=== PATIENT | male | born 1975 | race Caucasian/White ===

== ENCOUNTER 2025-01-02 18:25 | Inpatient (IN) | payer MEDICAID, OTHER ==
[~2025-01-02] VITALS: Ht 182.9 cm; Wt 108.5 kg
[~2025-01-02 18:25] MED LIST: [UNRECOGNIZED DRUG - CODE]
--- NOTE | 2025-01-02 18:45 | ED.PDOC ---
SOB-HPI HPI Comments This is a 49 year old male presenting to the ED with chief complaint of SOB and LLE pain/swelling. Patient reports that he has been experiencing SOB and dyspnea on mild exertion with associated left posterior leg burning/aching, cough with yellow sputum and dizziness. Patient reports his left leg has been swollen for a while." Patient denies any chest pain, syncope, headache, numbness, weakness, or fall injury. Chief Complaint: Lower Extremity Time Seen by MD: 18:43 Primary Care Provider: DENIES Reviewed notes: Nurses Notes, Medications, Allergies Information Source: Patient Mode of Arrival: Ambulatory Severity: Moderate Timing: Days Duration: Since onset Context: At Rest PE Risk Factors: None History of: None Prehospital treatment: None Modifying Factors: Nothing Associated Signs and Symptoms: Cough, Leg Swelling If cough with SOB: Productive, Yellow Past Medical History PAST MEDICAL HISTORY: Denies Surgical History (Other): Rt clavicle surgery, right wrist surgery Family History Family History: Reviewed,noncontributory to illness, Unknown Social History Smoker: Cigarettes Alcohol: Denies ETOH Use Drugs: Denies Drug Use Lives In: Home Constitutional: denies: chills, diaphoresis, fatigue, fever, malaise, sweats, weakness, others EENTM: denies: blurred vision, double vision, ear bleeding, ear discharge, ear drainage, ear pain, ear ringing, eye pain, eye redness, hearing loss, mouth pain, mouth swelling, nasal discharge, nose bleeding, nose congestion, nose pain, photophobia, tearing, throat pain, throat swelling, voice changes, others Respiratory: reports: cough, SOB at rest, shortness of breath; denies: hemoptysis, orthopnea, SOB with excertion, stridor, wheezing, others Cardiovascular: reports: edema; denies: chest pain, dizzy spells, diaphoresis, Dyspnea on exertion, irregular heart beat, left arm pain, lightheadedness, palpitations, PND, syncope, others Gastrointestinal: denies: abdomen distended, abdominal pain, blood streaked bowels, constipated, diarrhea, dysphagia, difficulty swallowing, hematemesis, melena, nausea, poor appetite, poor fluid intake, rectal bleeding, rectal pain, vomiting, others Genitourinary: denies: burning, dysuria, flank pain, frequency, hematuria, incontinence, penile discharge, penile sore, pain, testicle pain, testicle swelling, urgency, others Neurological: reports: dizziness; denies: fainting, headache, left sided numbness, left sided weakness, numbness, paresthesia, pre-existing deficit, right sided numbness, right sided weakness, seizure, speech problems, tingling, tremors, weakness, others Musculoskeletal: reports: others (Lt leg pain); denies: back pain, gout, joint pain, joint swelling, muscle pain, muscle stiffness, neck pain Integumetry: denies: bruises, change in color, change in hair/nails, dryness, laceration, lesions, lumps, rash, wounds, others Allergic/Immunocompromised: denies: Difficulty Healing, Frequent Infections, Hives, Itching, others Hematologic/Lymphatic: denies: anemia, blood clots, easy bleeding, easy bruisin g, swollen glands, others Endocrine: denies: excessive hunger, excessive sweating, excessive thirst, excessive urination, flushing, intolerance to cold, intolerance to heat, unexplained weight gain, unexplained weight loss, others Psychiatric: denies: anxiety, bipolar disorder, depression, hopeless, panic disorder, schizophrenia, sleepless, suicidal, others All Other Systems: Reviewed and Negative Physical Exam General Appearance: No Apparent Distress, Obese HEENT: Other (Pupils and face symmetric. Moist mucous membranes.) Neck: Full Range of Motion, Normal Inspection Respiratory: Lungs Clear, No Respiratory Distress, Normal Breath Sounds Cardiovascular: No Edema, No JVD, Regular Rate/Rhythm Breast Exam: Deferred Gastrointestinal: Non Tender, Soft Genitalia: Deferred Pelvic: Deferred Rectal: Deferred Extremities: Calf tenderness (Left), Leg edema (Left), Normal range of motion, Pedal edema (Left) Musculoskeletal : Apperance: Normal Neurologic: Alert (Oriented x4), Normal Affect, Normal Mood, Other (Ambulatory) Cerebellar Function: NOT DONE Reflexes: NOT DONE Skin: Dry, Normal Color, Warm Lymphatic: NOT DONE EKG EKG : Comments Sinus rhythm, rate 99, normal [place] and QRS intervals, QTC 513, normal axis, nonspecific T change. Was a procedure done? Was a procedure done?: No Differential Dx Differential Diagnosis: Asthma, Bronchitis, CHF, COPD, Pneumonia, Pulmonary Embolism, Respiratory Distress, URI Comments DVT X-Ray, Labs, Meds, VS Vital Signs Date Time Temp Pulse Resp B/P (MAP) Pulse Ox O2 Delivery O2 Flow Rate FiO2 01/02/25 21:03 98.7 81 12 143/71 (95) 96 98.7 01/02/25 19:02 20 95 Room Air* 0 21 01/02/25 18:35 99 01/02/25 18:27 99.2 102 18 144/86 93 99.2 01/02/25 18:27 102 20 93 Room Air Lab Test 01/02/25 19:50 01/02/25 18:55 Range/Units Troponin I High Sensitivity 52 53 </=54 ng/L White Blood Count 10.0 4.4-10.8 10^3/uL Red Blood Count 5.10 4.5-5.90 10^6/uL Hemoglobin 15.3 13.5-17.5 g/dL Hematocrit 44.6 41.0-53.0 % Mean Corpuscular Volume 87.4 80.0-100.0 fL Mean Corpuscular Hemoglobin 29.9 28.0-32.0 pg Mean Corpuscular Hemoglobin Concent 34.2 32.0-36.0 g/dL Red Cell Distribution Width 14.4 H 11.8-14.3 % Platelet Count 278 140-450 10^3/uL Mean Platelet Volume 6.9 6.9-10.8 fL Neutrophils (%) (Auto) 69.4 37.0-80.0 % Lymphocytes (%) (Auto) 19.5 10.0-50.0 % Monocytes (%) (Auto) 6.8 0.0-12.0 % Eosinophils (%) (Auto) 3.7 0.0-7.0 % Basophils (%) (Auto) 0.6 0.0-2.0 % Neutrophils # (Auto) 6.9 1.6-8.6 10 ^3/uL Lymphocytes # (Auto) 1.9 0.4-5.4 10 ^3/uL Monocytes # (Auto) 0.7 0-1.3 10 ^3/uL Eosinophils # (Auto) 0.4 0-0.8 10 ^3/uL Basophils # (Auto) 0.1 0-0.2 10 ^3/uL Nucleated Red Blood Cells 0.0 % Prothrombin Time 10.8 9.3-11.8 sec Prothrombin Time INR 1.02 0.9-1.15 Activated Partial Thromboplast Time 30.5 24.5-34.5 SEC D-Dimer, Quantitative 3.54 H 0.0-0.49 mg/L FEU Sodium Level 141 136-145 mmol/L Potassium Level 3.9 3.5-5.1 mmol/L Chloride Level 106 98-107 mmol/L Carbon Dioxide Level 26 20-31 mmol/L Anion Gap 9 5-15 Blood Urea Nitrogen 11 9-23 mg/dL Creatinine 1.20 0.700-1.30 mg/dL Glomerular Filtration Rate Calc 75 >90 mL/min BUN/Creatinine Ratio 9.2 L 10.0-20.0 Serum Glucose 87 74-106 mg/dL Calcium Level 9.3 8.7-10.4 mg/dL Total Bilirubin 0.3 0.2-1.0 mg/dL Aspartate Amino Transferase (AST) 84 H 13-40 U/L Alanine Aminotransferase (ALT) 76 H 7-40 U/L Alkaline Phosphatase 162 H 46-116 U/L B-Type Natriuretic Peptide 181.46 0-100 pg/mL Total Protein 7.8 5.7-8.2 g/dL Albumin 4.6 3.2-4.8 g/dL Current Medications Medications (Trade) Dose Ordered Sig/Letitia Route Start Time Stop Time Status Last Admin Albuterol (Ventolin Medneb) 5 mg ONCE ONCE NEB 01/02/25 18:45 01/02/25 18:46 DC 01/02/25 18:59 Ipratropium Rice (Atrovent Medneb) 0.5 mg ONCE ONCE NEB 01/02/25 18:45 01/02/25 18:46 DC 01/02/25 19:00 Chest XR: 1. No acute cardiopulmonary disease. PATIENT: BENNIE SALINAS ACCT: [id number] UNIT: [id number] : 1975 LOC: ER ROOM / BED: / AGE / SEX: 49 / M ADM STATUS: REG ER SERVICE 1841 ORDERING PHYSICIAN: WILLIAM TAN MD PROCEDURE(s): LLDVT - LT Lower DVT REASON: LLE edema/pain r/o DVT ORDER NUMBER(s): [id number], ACCESSION NUMBER(s): [id number] Left lower extremity venous duplex Clinical History: LLE edema/pain r/o DVT Comparison: None Technique: Duplex doppler evaluation of the deep venous system of the left lower extremity from the common femoral vein to the popliteal vein including color doppler and spectral/pulsed waveform analysis was performed. Findings: Occlusive thrombus throughout the left superficial femoral vein, popiteal vein, as well as the trifurcations and posterior tibial veins. Common femoral and saphenous veins are patent and compressible. Impression: Positive for DVT throughout the left lower extremity as described. Findings reported to the ordering MD by the senior javascript developer at the time of the study. ENT: BENNIE SALINAS ACCT: [id number] UNIT: [id number] : 1975 LOC: ER ROOM / BED: / AGE / SEX: 49 / M ADM STATUS: REG ER SERVICE 28 ORDERING PHYSICIAN: WILLIAM TAN MD PROCEDURE(s): CTACH - CT ANGIO CHEST CONTRAST REASON: LLE DVT r/o PE ORDER NUMBER(s): [id number], ACCESSION NUMBER(s): [id number] CTA Chest with intravenous contrast INDICATION: LLE DVT r/o PE COMPARISON: None TECHNIQUE: Multidetector spiral CTA of the chest was performed of the chest with intravenous contrast. PULMONARY ANGIOGRAPHY PROTOCOL was utilized using a bolus- tracking technique centered on the main pulmonary artery. Axial, coronal and sagittal multiplanar and MIP reformats were performed. Radiation dose : 1. Chest: CTDI volume is 28.6 mGy. Dose-length product is 1094.61 mGy*cm The dose indicators for CT are the volume computed tomography (CT) dose index (CTDIvol) and the dose length product (DLP), and are measured in units of mGy and mGy-cm, respectively. These indicators are not patient dose, but values generated from the CT scanner acquisition factors. The report includes radiation exposure data for exposures received during this examination. Findings: Pulmonary artery: Extensive bilateral PE with thrombus beginning at the distal aspects of both main pulmonary arteries extending into the lobar branches diffusely. Main pulmonary artery is mildly enlarged measuring 3.6 cm. No obvious RV strain. Lower neck: Normal thyroid. Lungs: No focal consolidation, pleural effusion or pneumothorax. Heart/Vascular Structures: Normal heart size. No pericardial effusion. Lymph Nodes: No adenopathy Pleura: No pleural effusion or significant pneumothorax. Musculoskeletal: No acute osseous abnormality. Soft tissues: Normal. Upper abdomen: Limited portions of the upper abdomen are unremarkable. IMPRESSION: Extensive bilateral PE. No definite right heart strain. Findings discussed with ER physician Dr. Rainey at at 9:53 PM on 01/02/2025. X-Ray, Labs, Meds, VS Comment 49-year-old male with no significant past medical history except for current tobacco use complaining of shortness a breath, left leg swelling and pain, and dizziness Vitals remarkable for heart rate 102, BP 144/86, oxygen saturation 93% on room air Exam remarkable for left lower extremity edema and calf tenderness Rhythm strip independently interpreted by me: Sinus rhythm, rate 99, no ectopy. Chest x-ray unremarkable CT angio chest IMPRESSION: Extensive bilateral PE. No definite right heart strain. Left lower extremity ultrasound positive for DVT CBC and CMP unremarkable, troponin negative, BNP 181.46, D-dimer 3.54 Patient treated with the following in the ED: Albuterol 5 mg/Atrovent 0.5 mg nebulized, heparin IV per protocol On re-evaluation, oxygen saturation is 95% on room air, other vitals were stable, and patient is not in respiratory distress. Plan is to admit the patient for anticoagulation and IR consultation for thrombectomy. Images Reviewed?: Images reviewed and evaluated by me Time of 1ST Reevaluation: 19:42 Reevaluation 1ST: Improved Patient Education/Counseling: Diagnosis, Treatment Family Education/Counseling: No Family Present SEPSIS Sepsis Screen Date sepsis recognized/suspect: Jan 02, 2025 Time Sepsis recognized/suspect: 1826 Recent Procedure: No On Antibiotic Therapy: No Respiratory Rate >20: No Heart Rate >90: Yes Temp<36 C (96.8 F) or >38.3 C: No SBP <90 or MAP <65 mmHG: No New Acute Mental Status Change: No Is the patient on CPAP, BIPAP,: No SEPSIS EXCLUSION NOTE: Sepsis Exclusion Note: Patient presents with SIRS criteria, but the SIRS response is attributed to [shortness of breath ], not a suspected infection. Sepsis bundle is not initiated at this time, due to this reason. Further management will focus on the treatment of the above condition (s). Physician Orders Chest Portable (01/02/25 18:41) Urinalysis (01/02/25 18:41) Troponin-I Hs (01/02/25 21:41) Lt Lower Dvt (01/02/25 18:41) Ct Angio Chest Contrast (01/02/25 19:29) * Radiologist Consult (01/02/25:) Platelet Monitoring (01/02/25:29) Vte Protocol Initiated (01/02/25:) Heparin Per Standardized Proce (01/02/25:) Discontinue All Im Injections (01/02/25:) Heparin Sodium (Porcine) (01/02/25 19:30) Heparin Drip/D5w 100units/Ml (01/02/25 20:00) Heplock Iv (01/02/25:) Oxygen (01/02/25:) Customer Support Consultant (01/02/25:) Blood Pressure (01/02/25:) Pulse Oximetry (01/02/25:29) Vital Signs Date Time Temp Pulse Resp B/P (MAP) Pulse Ox O2 Delivery O2 Flow Rate FiO2 01/02/25 21:03 98.7 81 12 143/71 (95) 96 98.7 01/02/25 19:02 20 95 Room Air* 0 21 01/02/25 18:35 99 01/02/25 18:27 99.2 102 18 144/86 93 99.2 01/02/25 18:27 102 20 93 Room Air Laboratory Tests Test 01/02/25 18:55 White Blood Count 10.0 10^3/uL (4.4-10.8) Medications Medications Dose Ordered Sig/Letitia Route Start Time Stop Time Status Last Admin Dose Admin Albuterol 5 mg ONCE ONCE NEB 01/02/25 18:45 01/02/25 18:46 DC 01/02/25 18:59 Ipratropium Rice 0.5 mg ONCE ONCE NEB 01/02/25 18:45 01/02/25 18:46 DC 01/02/25 19:00 Departure 1 Departure Time of Disposition: 19:53 Impression: Primary Impression: Deep vein thrombosis (DVT) of left lower extremity Qualified Codes: I82.402 - Acute embolism and thrombosis of unspecified deep veins of left lower extremity Additional Impression: Pulmonary embolus Qualified Codes: I26.99 - Other pulmonary embolism without acute cor pulmonale Disposition: ADMITTED INPATIENT Admit to: [facility] Condition: Guarded Critical Care Note Critical Care Time?: Yes (45 min-critical care time only) Critical care comment: Critical care time including multiple bedside re-evaluations, review of lab and imaging studies, and discussion of the case with the admitting provider. Patient is high risk for hemodynamic and/or respiratory decompensation. Stability Stability form required: No Heart Score Heart Score: Heart Score Response (Comments) Value History N/A 0 EKG N/A 0 Age N/A 0 Risk Factors N/A 0 Troponin N/A 0 Total 0 I personally scribed for WILLIAM TAN MD ([email or web address]) on 01/02/25 at 18:45. Electronically submitted by Kyrie Suazo ([email or web address]). I personally scribed for WILLIAM TAN MD ([email or web address]) on 01/02/25 at 19:27. Electronically submitted by Kyrie Suazo ([email or web address]). WILLIAM TAN MD Jan 02, 2025 18:45
[2025-01-02] MEDS: ALBUTEROL SULF 2.5 MG/0.5ML(0.5%) NEB SOLN NEB ONE (18:59)
[2025-01-02] MEDS: IPRATROPIUM BROM 0.5 MG/2.5ML INH SOL NEB ONE (19:00)
[2025-01-02 19:02] LABS: Hematocrit 44.6 % (41.0-53.0); Hemoglobin 15.3 g/dL (13.5-17.5); Mean Corpuscular Hemoglobin 29.9 pg (28.0-32.0); Mean Corpuscular Volume 87.4 fL (80.0-100.0); Nucleated Red Blood Cells % 0.0 %
[2025-01-02 19:18] LABS: Albumin 4.6 g/dL (3.2-4.8); Anion Gap 9 (5-15); BUN/Creatinine Ratio 9.2 (10.0-20.0); Blood Urea Nitrogen 11 mg/dL (9-23); Calcium 9.3 mg/dL (8.7-10.4); Carbon Dioxide 26 mmol/L (20-31); Chloride 106 mmol/L (98-107); Glucose 87 mg/dL (74-106); Potassium 3.9 mmol/L (3.5-5.1); Sodium 141 mmol/L (136-145); Total Protein 7.8 g/dL (5.7-8.2)
[2025-01-02 19:19] LABS: Bilirubin, Total 0.3 mg/dL (0.2-1.0)
[2025-01-02 19:20] LABS: Alanine Aminotransferase 76 U/L (7-40); Alkaline Phosphatase 162 U/L (46-116)
[2025-01-02 19:24] LABS: INR 1.02 (0.9-1.15); Partial Thromboplastin Time 30.5 SEC (24.5-34.5); Prothrombin Time 10.8 sec (9.3-11.8)
--- NOTE | 2025-01-02 19:25 | DVH ---
CHEST RADIOGRAPH Indication: sob Technique: Single frontal view of the chest was obtained Comparison: None FINDINGS: Lines and Tubes: None Lungs: No focal consolidation. Pleura: No effusion. No pneumothorax. Cardiomediastinal contours: Unremarkable Bones: No acute osseous abnormality. IMPRESSION: 1. No acute cardiopulmonary disease.
--- NOTE | 2025-01-02 19:57 | DVH ---
Left lower extremity venous duplex Clinical History: LLE edema/pain r/o DVT Comparison: None Technique: Duplex doppler evaluation of the deep venous system of the left lower extremity from the common femor al vein to the popliteal vein including color doppler and spectral/pulsed waveform analysis was perfo rmed. Findings: Occlusive thrombus throughout the left superficial femoral vein, popiteal vein, as well as the trifur cations and posterior tibial veins. Common femoral and saphenous veins are patent and compressible. Impression: Positive for DVT throughout the left lower extremity as described. Findings reported to the ordering MD by the manager of revenue at the time of the study.
--- NOTE | 2025-01-02 20:54 | ECG ---
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
[2025-01-02] MEDS: IOHEXOL 350 MG/ML 100ML IJ ONE (21:14)
--- NOTE | 2025-01-02 21:56 | DVH ---
CTA Chest with intravenous contrast INDICATION: LLE DVT r/o PE COMPARISON: None TECHNIQUE: Multidetector spiral CTA of the chest was performed of the chest with intravenous contrast . PULMONARY ANGIOGRAPHY PROTOCOL was utilized using a bolus-tracking technique centered on the main p ulmonary artery. Axial, coronal and sagittal multiplanar and MIP reformats were performed. Radiation dose : 1. Chest: CTDI volume is 28.6 mGy. Dose-length product is 1094.61 mGy*cm The dose indicators for CT are the volume computed tomography (CT) dose index (CTDIvol) and the dose length product (DLP), and are measured in units of mGy and mGy-cm, respectively. These indicators are not patient dose, but values generated from the CT scanner acquisition factors. The report includes radiation exposure data for exposures received during this examination. Findings: Pulmonary artery: Extensive bilateral PE with thrombus beginning at the distal aspects of both main p ulmonary arteries extending into the lobar branches diffusely. Main pulmonary artery is mildly enlarg ed measuring 3.6 cm. No obvious RV strain. Lower neck: Normal thyroid. Lungs: No focal consolidation, pleural effusion or pneumothorax. Heart/Vascular Structures: Normal heart size. No pericardial effusion. Lymph Nodes: No adenopathy Pleura: No pleural effusion or significant pneumothorax. Musculoskeletal: No acute osseous abnormality. Soft tissues: Normal. Upper abdomen: Limited portions of the upper abdomen are unremarkable. IMPRESSION: Extensive bilateral PE. No definite right heart strain. Findings discussed with ER physician Dr. Rainey at at 9:53 PM on 01/02/2025.
[2025-01-02] MEDS ORDERED: MORPHINE SULFATE INJ 2 MG/ml SYRG IV PRN (22:15)
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
[2025-01-02] MEDS: HEPARIN SODIUM (PORCINE) 5000 UNITS/ML 1ML VIAL IV ONE (22:19)
[2025-01-02] MEDS: HEPARIN DRIP/D5W 100UNITS/ML 250 ML IV SCH (22:28)
[2025-01-02] MEDS: SODIUM CHLORIDE 0.9% 1,000 ML IV SCH (22:36)
[2025-01-02] MEDS: PANTOPRAZOLE 40 MG/10 ML VIAL INJ IV ONE (22:36)
[2025-01-02 22:43] LABS: Magnesium 2.1 mg/dL (1.6-2.6)
[2025-01-02 22:44] LABS: HDL Cholesterol 47.0 mg/dL (40-59)
[2025-01-02 22:45] LABS: Cholesterol 157.0 mg/dL (< 200)
[2025-01-02 22:46] LABS: Triglycerides 189.0 mg/dL (< 150)
[2025-01-03 00:54] VITALS: PULSE 83; RESP 18; O2SAT 98
[2025-01-03] MEDS: NICOTINE 21MG/24 HR TOPICAL PATCH TD ONE (01:10)
[2025-01-03 04:32] LABS: Hematocrit 41.3 % (41.0-53.0); Hemoglobin 13.8 g/dL (13.5-17.5); Mean Corpuscular Hemoglobin 29.5 pg (28.0-32.0); Mean Corpuscular Volume 88.2 fL (80.0-100.0); Nucleated Red Blood Cells % 0.1 %
[2025-01-03 04:50] LABS: Albumin 4.0 g/dL (3.2-4.8); Anion Gap 7 (5-15); BUN/Creatinine Ratio 9.1 (10.0-20.0); Bilirubin, Total 0.6 mg/dL (0.2-1.0); Blood Urea Nitrogen 11 mg/dL (9-23); Calcium 8.8 mg/dL (8.7-10.4); Carbon Dioxide 27 mmol/L (20-31); Chloride 107 mmol/L (98-107); Potassium 4.1 mmol/L (3.5-5.1); Sodium 141 mmol/L (136-145); Total Protein 6.9 g/dL (5.7-8.2)
[2025-01-03 04:56] LABS: Alanine Aminotransferase 64 U/L (7-40); Alkaline Phosphatase 134 U/L (46-116); Glucose 113 mg/dL (74-106); INR 1.09 (0.9-1.15); Prothrombin Time 11.5 sec (9.3-11.8)
[2025-01-03 04:57] LABS: Partial Thromboplastin Time 84.1 SEC (24.5-34.5)
[2025-01-03] MEDS: HEPARIN DRIP/D5W 100UNITS/ML 250 ML IV SCH ×3 (05:08→20:14)
--- NOTE | 2025-01-03 09:00 | DVH ---
ULTRASOUND AORTIC CLINICAL INDICATION: Rule out May thurner (iliac vein compression) syndrome TECHNIQUE: Multiple sonographic images of the abdominal aorta were obtained. FINDINGS: The aorta measures 1.9, 1.6 and 1.2 cm in the AP diameter, at the superior, mid and inf erior portions, respectively. The right iliac artery measures 12mm in diameter. The left iliac measu red 12mm in diameter. There is no evidence for atherosclerotic disease. There is no periaortic fluid. IMPRESSION: 1. no evidence for abdominal aortic aneurysm. No evidence for may-Thurner.
[2025-01-03] MEDS: PANTOPRAZOLE 40 MG/10 ML VIAL INJ IV SCH (09:33)
[2025-01-03 10:45] LABS: Urine Protein, UAD Normal (Negative)
[2025-01-03 11:02] LABS: Amphetamine Screen, Urine Pos (NEGATIVE); Barbiturate Scree,Urine Neg (NEGATIVE); Benzodiazephine Screen, Urine Neg (NEGATIVE); Cannabinoid Screen, Urine Neg (NEGATIVE); Cocaine Screen, Urine Neg (NEGATIVE); Opiate Scree,Urine Neg (NEGATIVE); Phencyclidine Screen, Urine Neg (NEGATIVE)
[2025-01-03 12:26] LABS: INR 1.08 (0.9-1.15); Partial Thromboplastin Time 46.6 SEC (24.5-34.5); Prothrombin Time 11.4 sec (9.3-11.8)
--- NOTE | 2025-01-03 13:05 | DVHSR ---
APPROVED REPORT EXAM: Two-dimensional and M-mode echocardiogram with Doppler and color Doppler. Blood Pressure: 126/83 mmHg INDICATION Extensive PE RISK FACTORS Obesity: Height: 6'0", Weight: 248 DIMENSIONS LVDd5.4 (3.8-5.7cm)LA (2D)3.8 (1.9-4.0cm)Aortic Root4.0 (2.0-3.7cm) LVDs3.7 (2.5-4.0cm)LA (MM) (1.9-4.0cm)Aortic Cusp Exc2.1 (1.5-2.0cm) EF (%) 60.0 (55-70%)Rt. Atrium4.1 (1.9-4.0cm)Asc. Aorta cm IVSd1.1 (0.7-1.1cm)RV (D)4.3 (1.8-2.4cm) PWd1.0 (0.7-1.1cm) Mitral Valve MitralMitral Stenosis E wave0.58m/sMV Mean GR.mmHg A wave0.67m/sMV Peak GR.mmHg E/A ratio0.92D MVAcm2 DECEL [id number] 1/2 Tim[place] Aortic Valve Aortic ValveAortic Stenosis V11.11m/Yadi Mean GR.5mmHg V21.52m/Yadi Peak GR.9mmHg LVOT Diameter2.2 (1.8-2.4cm)Doppler AVA2.77cm2 Pulmonic Valve V20.94m/s Tricuspid Valve TR Velocity3.86m/s [id number] Conclusion lvef 55% grade 1 diaistolic dysfunction RV enlarged mild, decreased function PASP > 50 mmhg ,moderate pulm htn (could be underestimated) no seere valve abnormalities noted mild tricuspid regurg
--- NOTE | 2025-01-03 13:19 | CONS ---
Pharmacy Clinical Information: HEPARIN UPDATE PER PE/DVT PROTOCOL: Heparin running at 1800 units/hr from 0508 on 01/03. APTT result of 46.6 received from 1137 draw. Please adjust heparin to 2000 units per hour (20mL/hr) starting at 1230. Nurse Gillian adjusted rate at 1238. APTT/PT ordered for 1830 per PRx protocol. GARY ARTHUR PHARMACIST Jan 03, 2025 13:19
--- NOTE | 2025-01-03 15:05 | DVHPN2 ---
Subjective Continues to complain of left leg pain along with shortness of breath Reviewed: Care Plan, H&P, Labs, Medications, Previous Orders, Radiology, Other (Consultation) Changes from previous H/P or p: No Changes Objective Vitals Vital Signs Date Time Temp Pulse Resp B/P (MAP) Pulse Ox O2 Delivery O2 Flow Rate FiO2 01/03/25 13:57 79 18 127/89 (102) 95 01/03/25 08:00 97.5 97.5 01/03/25 07:15 Nasal Cannula* 2 28 Intake/Output Intake and Output 01/03/25 07:00 Intake Total 618 ml Balance 618 ml Intake IV Total 618 ml General Appearance: Alert, Oriented X3, Cooperative, mild distress HEENT: Atraumatic Lungs: Clear to auscultation, Normal air movement Cardiovascular: Regular rate, Normal S1, Normal S2, No murmurs Abdomen: Normal bowel sounds, Soft, No tenderness Extremities: Other (Left lower extremity swelling/redness/tenderness) Neuro: Normal speech, Cranial nerves 3-12 NL Psych/Mental Status: Mental status NL, Mood NL Medications Current Medications Medications Dose Ordered Sig/Letitia Route Start Time Stop Time Status Last Admin Dose Admin Sodium Chloride 1,000 ml @ 60 mls/hr [id number] IV 01/02/25 22:15 01/03/25 14:57 60 MLS/HR Morphine Sulfate 2 mg Q4HPRN PRN IV 01/02/25 22:15 Pantoprazole Sodium 40 mg DAILY IV 01/03/25 10:00 01/03/25 09:33 40 MG Nicotine 1 patch DAILY TD 01/04/25 10:00 Heparin Sodium/ Dextrose 250 ml @ 20 mls/hr [id number] IV 01/03/25 13:15 01/03/25 13:15 20 MLS/HR Laboratory Results Laboratory Tests 01/03/25 04:18 Chemistry Test 01/02/25 18:55 01/03/25 04:18 Albumin 4.6 g/dL (3.2-4.8) 4.0 g/dL (3.2-4.8) Calcium Level 9.3 mg/dL (8.7-10.4) 8.8 mg/dL (8.7-10.4) Magnesium Level 2.1 mg/dL (1.6-2.6) Phosphorus Level 3.3 mg/dL (2.4-5.1) Total Protein 7.8 g/dL (5.7-8.2) 6.9 g/dL (5.7-8.2) Coagulation Test 01/02/25 18:55 01/03/25 04:18 01/03/25 11:37 Prothrombin Time 10.8 sec (9.3-11.8) 11.5 sec (9.3-11.8) 11.4 sec (9.3-11.8) Prothrombin Time INR 1.02 (0.9-1.15) 1.09 (0.9-1.15) 1.08 (0.9-1.15) Activated Partial Thromboplast Time 30.5 SEC (24.5-34.5) 84.1 SEC (24.5-34.5) *H 46.6 SEC (24.5-34.5) H D-Dimer, Quantitative 3.54 mg/L FEU (0.0-0.49) H Lipid panel Test 01/02/25 18:55 Cholesterol Level 157 mg/dL (< 200) HDL Cholesterol 47 mg/dL (40-59) Triglycerides Level 189 mg/dL (< 150) H Cardiac Markers Test 01/02/25 18:55 B-Type Natriuretic Peptide 181.46 pg/mL (0-100) LFT Test 01/02/25 18:55 01/03/25 04:18 Alanine Aminotransferase (ALT) 76 U/L (7-40) H 64 U/L (7-40) H Alkaline Phosphatase 162 U/L (46-116) H 134 U/L (46-116) H Aspartate Amino Transferase (AST) 84 U/L (13-40) H 54 U/L (13-40) H Total Bilirubin 0.3 mg/dL (0.2-1.0) 0.6 mg/dL (0.2-1.0) HgA1c, TSH Test 01/02/25 18:55 Hemoglobin A1c 5.7 % A1C (<5.7) Thyroid Stimulating Hormone (TSH) 1.71 uIU/mL (0.55-4.78) Urinalysis Test 01/03/25 10:24 Urine Color Yellow (Yellow) Urine Clarity Clear (Clear) Urine pH 5.5 (5.0-9.0) Urine Specific [place] 1.044 (1.001-1.035) Urine Protein Normal (Negative) Urine Ketones Negative (Negative) Urine Blood Normal /uL (Negative) Urine Nitrite Negative (Negative) Urine Bilirubin Negative (Negative) Urine Urobilinogen Normal mg/dL (Negative) Urine Leukocyte Esterase Negative /uL (Negative) Urine Glucose Normal mg/dL (Normal) Labs and/or images reviewed: Labs reviewed by me, Image(s) reviewed by me Assessment/Plan Assessment/Plan Covering: Acute hypoxic respiratory failure due to extensive bilateral pulmonary emboli Extensive bilateral pulmonary emboli with right heart strain Occlusive thrombus throughout the left superficial femoral vein, popiteal vein, as well as the trifurcations and posterior tibial veins Left lower extremity pain due to above Hypertensive heart disease with chronic diastolic heart failure; not in exacerbation Polysubstance use disorder including alcohol/methamphetamine/tobacco Elevated LFTs in the setting of alcohol use disorder and suspected right heart strain CORTEZ; vasomotor nephropathy Obesity Discussed the case with Interventional Radiology; will proceed with thrombectomy for both DVT and extensive pulmonary emboli; a new order placed Continue heparin infusion and adjust dosing according to PTT under the supervision of pharmacy Reviewed the available lab work including drug screen Reviewed the available imaging studies along with echocardiogram Counseled the patient importance of adopting healthy lifestyle with diet and exercise in order to lose weight Avoid hepatotoxic and nephrotoxic agent Counseled for 24 minutes on alcohol/methamphetamine/tobacco use cessation; exclusively 12 minutes for tobacco use cessation Started on IV hydralazine as needed for systolic blood pressure above 150; to continue monitoring blood pressure readings Continue oxygen therapy as indicated Continue nicotine patch Continue GI prophylaxis Continue IV fluids Telemetry Continue close monitoring Goals of care discussed with the patient for 20 minutes; full code 99 minutes of critical care time Late Entry. This medical document was created using an electronic medical record system with computerized dictation system. Although this document has been carefully reviewed, there might still be some phonetic and typographical errors. These areas are purely typographical due to imperfections of the software programs, and do not reflect any compromise in the patient's medical care. Plan discussed with: Patient, Other (Nurse) My Orders Orders - RENUKA MOON MD Procedure Category Date Status Time * Cardiology Consult CONS 01/03/25 Transmitted 11:55 * Radiologist Consult CONS 01/03/25 Transmitted 14:55 Date of Service: Jan 03, 2025 Billing Provider: RENUKA MOON MD Common Visit Codes: [id number] CARE 30-74 MIN (99 minutes), [id number] CARE-EACH +30MIN Secondary Visit Codes: [id number] CHNG SMOKING >10MIN (Counseled for 24 minutes on alcohol/methamphetamine/tobacco use cessation; exclusively 12 minutes for tobacco use cessation), [id number]-[id number] CARE PLAN 30 MINUTES (20 minutes) RENUKA MOON MD Jan 03, 2025 15:05
[2025-01-03 17:21] LABS: Hepatitis B Surface Antigen Negative (Negative)
[2025-01-03 18:26] LABS: Hepatitis C Antibody Negative (Negative)
[2025-01-03 19:31] LABS: INR 1.03 (0.9-1.15); Partial Thromboplastin Time 28.0 SEC (24.5-34.5); Prothrombin Time 10.9 sec (9.3-11.8)
[2025-01-03] MEDS: HEPARIN SODIUM (PORCINE) 5000 UNITS/ML 1ML VIAL IV ONE (20:09)
[2025-01-03 21:23] VITALS: PULSE 94; RESP 16
[2025-01-03 22:06] VITALS: BP 136/88; PULSE 85; PULSE 88; RESP 19; TEMP 98.3; O2SAT 98
[2025-01-04] VITALS (13 sets, daily range): BP systolic 114–140; BP diastolic 62–94; PULSE 74–86; RESP 14–22; TEMP 97.5–99.6; O2SAT 93–100
[2025-01-04 02:45] LABS: Hematocrit 40.8 % (41.0-53.0); Hemoglobin 14.1 g/dL (13.5-17.5); Mean Corpuscular Hemoglobin 30.3 pg (28.0-32.0); Mean Corpuscular Volume 88.1 fL (80.0-100.0); Nucleated Red Blood Cells % 0.0 %
[2025-01-04 02:56] LABS: INR 1.03 (0.9-1.15); Partial Thromboplastin Time 29.9 SEC (24.5-34.5); Prothrombin Time 10.9 sec (9.3-11.8)
[2025-01-04 03:01] LABS: Albumin 3.8 g/dL (3.2-4.8); Anion Gap 8 (5-15); BUN/Creatinine Ratio 7.7 (10.0-20.0); Bilirubin, Total 0.4 mg/dL (0.2-1.0); Carbon Dioxide 24 mmol/L (20-31); Chloride 107 mmol/L (98-107); Potassium 4.1 mmol/L (3.5-5.1); Sodium 139 mmol/L (136-145); Total Protein 6.6 g/dL (5.7-8.2)
[2025-01-04 03:29] LABS: Alanine Aminotransferase 59 U/L (7-40); Alkaline Phosphatase 133 U/L (46-116); Blood Urea Nitrogen 8 mg/dL (9-23); Calcium 8.7 mg/dL (8.7-10.4); Glucose 112 mg/dL (74-106)
[2025-01-04] MEDS ORDERED: HEPARIN DRIP/D5W 100UNITS/ML 250 ML IV SCH (03:45)
[2025-01-04] MEDS: HEPARIN SODIUM (PORCINE) 5000 UNITS/ML 1ML VIAL IV ONE (04:00)
[2025-01-04] MEDS: HEPARIN DRIP/D5W 100UNITS/ML 250 ML IV SCH ×3 (04:01→22:15)
[2025-01-04] MEDS ORDERED: hydrALAZINE HCL 20 MG/ML VL IV PRN (07:00)
[2025-01-04 10:30] LABS: INR 1.03 (0.9-1.15); Partial Thromboplastin Time 36.4 SEC (24.5-34.5); Prothrombin Time 10.9 sec (9.3-11.8)
--- NOTE | 2025-01-04 10:48 | CONS ---
Pharmacy Clinical Information: HEPARIN DRIP, DVT PROTOCOL @09:53 APTT 36.4 - NO BOLUS, INCREASE HEPARIN DRIP RATE TO 2800 UNITS/HR NEXT APTT DRAW SCHEDULED @1700 PER RX PROTOCOL CONFIRMED AND READ BACK WITH RN AMINAH JANG,[facility] Jan 04, 2025 10:48
[2025-01-04] MEDS: NICOTINE 21MG/24 HR TOPICAL PATCH TD SCH (11:06)
[2025-01-04] MEDS: HEPARIN IN NS 1000Units/500mL 1,500 ML ONE (12:12)
[2025-01-04] MEDS: IODIXANOL 320MG/ML 100ML BTL IV ONE (12:13)
[2025-01-04] MEDS: HEPARIN SODIUM (PORCINE) 5000 UNITS/ML 1ML VIAL ONE (12:25)
[2025-01-04] MEDS: MIDAZOLAM HCL 2MG/2ML 2ml VIAL (1mg/ml) ONE (12:26)
[2025-01-04] MEDS: fentaNYL CITRATE 100 MCG/2 ML VL ONE (12:26)
[2025-01-04] MEDS: LIDOCAINE 2%HCL (LOCAL ANESTH.) INJ 20ML MDV ONE (12:30)
[2025-01-04] MEDS: HYDROmorphone HCL 2 MG/ML VL/or syr ONE (13:31)
--- NOTE | 2025-01-04 15:39 | ECG ---
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
--- NOTE | 2025-01-04 15:45 | DVH ---
XY PERC.ARTERIAL THROMBECTOMY, HISTORY: PULMONARY THROMBECTOMY due to bilateral PE with LLE DVT, RV dysfunction on echo, mildly elev ated troponins, new onsent chest pain. PROCEDURE: Informed consent was obtained. The patient was placed on the fluoroscopic table in supine position. The right groin was prepped with chlorhexidine which was allowed to dry and draped in the u sual sterile fashion. Time out was performed. Following administration of 1% local lidocaine, the com mon femoral vein was accessed with a micropuncture set under ultrasound guidance, and an image docume nting patency sent to PACS. A 6 Ivorian vascular sheath was placed into the right iliac vein and contr ast injected to confirm patency. An angled pigtail catheter was used to place into the main pulmonary artery. PA pressures were then measured. A guidewire was placed into the distal right pulmonary kristi ry. The 6 Fr sheath was exchanged for the 26 Fr Inari sheath placed into the IVC. A 24 Fr Inari Triev er aspiration catheter was placed in the right pulmonary artery and multiple aspirations were perform ed. A pulmonary angiogram was performed. Then the aspiration catheter was repositioned into the left pulmonary artery over a wire and multiple aspirations performed. A curved aspiration catheter was crys james into the left pulmonary artery and aspiration was performed. Final pressures were measured and a pulmonary angiogram performed. The aspiration catheter was removed. A catheter was positioned into th e left external iliac vein and a venogram was performed. The introducer sheath was removed and the ve notomy closed with manual compression and a Flow Stasis device. No immediate complication was identif ied. DAP FLUOROSCOPY TIME: minutes. CONTRAST USED: 120 mL. SEDATION: Dr. Ruth Okeefe was personally responsible for the administration of moderate sedation during the procedure performed, including the use of an independent trained observer who had no other duties during the procedure. The drugs utilized were IV fentanyl and versed (see nursing log for details). The total time of supervision by the attending physician was approximately 90 minutes. FINDINGS: Multiple filling defects are visualized in the right and left pulmonary arteries with reduc tion of filling defects after thrombectomy and improved distal perfusion of the distal pulmonary kristi soheila bilaterally. Some thrombus remains in the right upper pulmonary artery. Left iliac venogram does not show compression of the left common iliac vein. IMPRESSION: Multiple filling defects are visualized in the right and left pulmonary arteries with reduction of fi lling defects after thrombectomy and improved distal perfusion of the distal pulmonary arteries bilat erally. Left iliac venogram does not show compression of the left common iliac vein to suggest for justin tellez PLAN: Continue heparin drip per pharmacy. Will remove flow stasis device tomorrow.
[2025-01-04 16:11] LABS: INR 1.05 (0.9-1.15); Partial Thromboplastin Time 37.0 SEC (24.5-34.5); Prothrombin Time 11.1 sec (9.3-11.8)
--- NOTE | 2025-01-04 16:31 | DVHPN2 ---
Subjective Patient is a going down to general labor to have thrombectomy for his pulmonary emboli. Reviewed: Care Plan, H&P, Labs, Medications, Previous Orders, Radiology, Other (Consultation) Changes from previous H/P or p: No Changes Objective Vitals Vital Signs Date Time Temp Pulse Resp B/P (MAP) Pulse Ox O2 Delivery O2 Flow Rate FiO2 01/04/25 15:22 76 22 140/87 (104) 100 01/04/25 13:00 99.6 99.6 01/04/25 08:00 Nasal Cannula* 1 24 Intake/Output Intake and Output 01/04/25 07:00 Intake Total 2663.6 ml Output Total 600 ml Balance 2063.6 ml Intake Oral 700 ml IV Total 1963.6 ml Output Urine Total 600 ml General Appearance: Alert, Oriented X3, Cooperative, mild distress HEENT: Atraumatic Lungs: Clear to auscultation, Normal air movement Cardiovascular: Regular rate, Normal S1, Normal S2, No murmurs Abdomen: Normal bowel sounds, Soft, No tenderness Extremities: Other (Left lower extremity swelling/redness/tenderness) Neuro: Normal speech, Cranial nerves 3-12 NL Psych/Mental Status: Mental status NL, Mood NL Medications Current Medications Medications Dose Ordered Sig/Letitia Route Start Time Stop Time Status Last Admin Dose Admin Sodium Chloride 1,000 ml @ 60 mls/hr [id number] IV 01/02/25 22:15 01/04/25 10:35 60 MLS/HR Morphine Sulfate 2 mg Q4HPRN PRN IV 01/02/25 22:15 Pantoprazole Sodium 40 mg DAILY IV 01/03/25 10:00 01/04/25 10:59 40 MG Nicotine 1 patch DAILY TD 01/04/25 10:00 01/04/25 11:06 1 PATCH Hydralazine HCl 10 mg Q6HP PRN IV 01/04/25 07:00 Heparin Sodium/ Dextrose 250 ml @ 28 mls/hr [id number] IV 01/04/25 14:30 01/04/25 15:57 28 MLS/HR Laboratory Results Laboratory Tests 01/04/25 02:10 Chemistry Test 01/04/25 02:10 Albumin 3.8 g/dL (3.2-4.8) Calcium Level 8.7 mg/dL (8.7-10.4) Total Protein 6.6 g/dL (5.7-8.2) Coagulation Test 01/03/25 18:54 01/04/25 02:10 01/04/25 09:53 01/04/25 15:39 Prothrombin Time 10.9 sec (9.3-11.8) 10.9 sec (9.3-11.8) 10.9 sec (9.3-11.8) 11.1 sec (9.3-11.8) Prothrombin Time INR 1.03 (0.9-1.15) 1.03 (0.9-1.15) 1.03 (0.9-1.15) 1.05 (0.9-1.15) Activated Partial Thromboplast Time 28.0 SEC (24.5-34.5) 29.9 SEC (24.5-34.5) 36.4 SEC (24.5-34.5) H 37.0 SEC (24.5-34.5) H LFT Test 01/04/25 02:10 Alanine Aminotransferase (ALT) 59 U/L (7-40) H Alkaline Phosphatase 133 U/L (46-116) H Aspartate Amino Transferase (AST) 39 U/L (13-40) Total Bilirubin 0.4 mg/dL (0.2-1.0) Urinalysis Test 01/03/25 10:24 Urine Color Yellow (Yellow) Urine Clarity Clear (Clear) Urine pH 5.5 (5.0-9.0) Urine Specific [place] 1.044 (1.001-1.035) Urine Protein Normal (Negative) Urine Ketones Negative (Negative) Urine Blood Normal /uL (Negative) Urine Nitrite Negative (Negative) Urine Bilirubin Negative (Negative) Urine Urobilinogen Normal mg/dL (Negative) Urine Leukocyte Esterase Negative /uL (Negative) Urine Glucose Normal mg/dL (Normal) Assessment/Plan Assessment/Plan Acute hypoxic respiratory failure due to extensive bilateral pulmonary emboli Extensive bilateral pulmonary emboli with right heart strain Occlusive thrombus throughout the left superficial femoral vein, popiteal vein, as well as the trifurcations and posterior tibial veins Left lower extremity pain due to above Hypertensive heart disease with chronic diastolic heart failure; not in exacerbation Polysubstance use disorder including alcohol/methamphetamine/tobacco Elevated LFTs in the setting of alcohol use disorder and suspected right heart strain CORTEZ; vasomotor nephropathy Obesity He is clinically stable. He is going down to general labor to have thrombectomy for his extensive pulmonary embolism. Patient continued on IV heparin drip. Discussed with the nurse to resume heparin drip and advance diet as he tolerates. Otherwise continue rest of supportive care and treatment. Follow clinical management per clinical course. Plan discussed with: Other My Orders Orders - SONIDO WHEELER MD Procedure Category Date Status Time Perc.Arterial XY 01/04/25 Resulted Thrombectomy 14:29 Date of Service: Jan 04, 2025 Billing Provider: SONIDO WHEELER MD Common Visit Codes: [id number] INP/OBS CARE(MOD) SONIDO WHEELER MD Jan 04, 2025 16:31
[2025-01-04 21:47] LABS: INR 1.08 (0.9-1.15); Prothrombin Time 11.4 sec (9.3-11.8)
[2025-01-04 21:58] LABS: Partial Thromboplastin Time 80.4 SEC (24.5-34.5)
--- NOTE | 2025-01-04 22:08 | CONS ---
Pharmacy Clinical Information: NEW HEPARIN RATE @2600 UNITS/HR OR 26 ML/HR SINCE APTT = 80.4 @01/04 PER RX PROTOCOL. NEXT APTT 6 HOURS FROM STARTING NEW RATE, @0400 01/05 SORAYA RIVERS AWARE DECREASE RATE FROM 28 ML/HR TO 26 ML/HR MEMO CAMPOS PHARMACIST Jan 04, 2025 22:08
[2025-01-05] VITALS (7 sets, daily range): BP systolic 115–147; BP diastolic 67–94; PULSE 76–85; RESP 17–20; TEMP 97.9–98.2; O2SAT 92–96
[2025-01-05 05:16] LABS: Hematocrit 41.0 % (41.0-53.0); Hemoglobin 14.1 g/dL (13.5-17.5); Mean Corpuscular Hemoglobin 30.5 pg (28.0-32.0); Mean Corpuscular Volume 88.7 fL (80.0-100.0); Nucleated Red Blood Cells % 0.2 %
[2025-01-05 05:22] LABS: Anion Gap 11 (5-15); Calcium 8.9 mg/dL (8.7-10.4); Carbon Dioxide 24 mmol/L (20-31); Chloride 103 mmol/L (98-107); Potassium 3.8 mmol/L (3.5-5.1); Sodium 138 mmol/L (136-145)
[2025-01-05 05:28] LABS: BUN/Creatinine Ratio 8.8 (10.0-20.0); Blood Urea Nitrogen 10 mg/dL (9-23)
[2025-01-05 05:30] LABS: Glucose 125 mg/dL (74-106)
[2025-01-05 05:43] LABS: INR 1.12 (0.9-1.15); Prothrombin Time 11.7 sec (9.3-11.8)
[2025-01-05 05:50] LABS: Partial Thromboplastin Time 135.5 SEC (24.5-34.5)
[2025-01-05] MEDS: HEPARIN DRIP/D5W 100UNITS/ML 250 ML IV SCH ×2 (07:02→15:03)
[2025-01-05 13:36] LABS: INR 1.12 (0.9-1.15); Prothrombin Time 11.7 sec (9.3-11.8)
[2025-01-05 13:50] LABS: Partial Thromboplastin Time 114.5 SEC (24.5-34.5)
--- NOTE | 2025-01-05 17:00 | DVHPN2 ---
Subjective Status post thrombectomy for bilateral pulmonary emboli yesterday. Patient is ambulating and no shortness a breath. No chest pain. On IV heparin drip. Anxious to go home. Reviewed: Care Plan, H&P, Labs, Medications, Previous Orders, Radiology, Other (Consultation) Changes from previous H/P or p: No Changes Objective Vitals Vital Signs Date Time Temp Pulse Resp B/P (MAP) Pulse Ox O2 Delivery O2 Flow Rate FiO2 01/05/25 16:17 98.1 85 20 137/94 (108) 96 98.1 01/05/25 08:00 Nasal Cannula* 2 28 Intake/Output Intake and Output 01/05/25 07:00 Intake Total 920 ml Output Total 3700 ml Balance -2780 ml Intake Oral 920 ml Output Urine Total 3700 ml General Appearance: Alert, Oriented X3, Cooperative, mild distress HEENT: Atraumatic Lungs: Clear to auscultation, Normal air movement Cardiovascular: Regular rate, Normal S1, Normal S2, No murmurs Abdomen: Normal bowel sounds, Soft, No tenderness Extremities: Other (Left lower extremity swelling/redness/tenderness) Neuro: Normal speech, Cranial nerves 3-12 NL Psych/Mental Status: Mental status NL, Mood NL Medications Current Medications Medications Dose Ordered Sig/Letitia Route Start Time Stop Time Status Last Admin Dose Admin Sodium Chloride 1,000 ml @ 60 mls/hr [id number] IV 01/02/25 22:15 01/04/25 10:35 60 MLS/HR Morphine Sulfate 2 mg Q4HPRN PRN IV 01/02/25 22:15 Pantoprazole Sodium 40 mg DAILY IV 01/03/25 10:00 01/05/25 09:05 40 MG Nicotine 1 patch DAILY TD 01/04/25 10:00 01/05/25 09:13 1 PATCH Hydralazine HCl 10 mg Q6HP PRN IV 01/04/25 07:00 Heparin Sodium/ Dextrose 250 ml @ 20 mls/hr [id number] IV 01/05/25 15:00 01/05/25 20:00 01/05/25 15:03 20 MLS/HR Apixaban 10 mg BID PO 01/05/25 22:00 UNV Laboratory Results Laboratory Tests 01/05/25 04:02 Chemistry Test 01/05/25 04:02 Calcium Level 8.9 mg/dL (8.7-10.4) Coagulation Test 01/04/25 17:24 01/04/25 21:04 01/05/25 04:02 01/05/25 12:52 Protein C Antigen Pending Protein S Antigen Pending Free Protein S Antigen Pending Anti-Thrombin III Antigen Pending Factor V Leiden Mutation Pending Prothrombin Time 11.4 sec (9.3-11.8) 11.7 sec (9.3-11.8) 11.7 sec (9.3-11.8) Prothrombin Time INR 1.08 (0.9-1.15) 1.12 (0.9-1.15) 1.12 (0.9-1.15) Activated Partial Thromboplast Time 80.4 SEC (24.5-34.5) *H 135.5 SEC (24.5-34.5) *H 114.5 SEC (24.5-34.5) *H Urinalysis Test 01/03/25 10:24 Urine Color Yellow (Yellow) Urine Clarity Clear (Clear) Urine pH 5.5 (5.0-9.0) Urine Specific [place] 1.044 (1.001-1.035) Urine Protein Normal (Negative) Urine Ketones Negative (Negative) Urine Blood Normal /uL (Negative) Urine Nitrite Negative (Negative) Urine Bilirubin Negative (Negative) Urine Urobilinogen Normal mg/dL (Negative) Urine Leukocyte Esterase Negative /uL (Negative) Urine Glucose Normal mg/dL (Normal) Assessment/Plan Assessment/Plan Acute hypoxic respiratory failure due to extensive bilateral pulmonary emboli Extensive bilateral pulmonary emboli with right heart strain Occlusive thrombus throughout the left superficial femoral vein, popiteal vein, as well as the trifurcations and posterior tibial veins Left lower extremity pain due to above Hypertensive heart disease with chronic diastolic heart failure; not in exacerbation Polysubstance use disorder including alcohol/methamphetamine/tobacco Elevated LFTs in the setting of alcohol use disorder and suspected right heart strain CORTEZ; vasomotor nephropathy Obesity He is clinically stable. I will taper off and discontinue IV heparin drip and start him on oral Eliquis for acute PE treatment from [facility]. Monitor him overnight and if he remains stable consider discharge home tomorrow. Patient needs to follow up outpatient with the PCP for hypercoagulable workup. This is discussed with the patient. Further clinical management per clinical course. Plan discussed with: Patient My Orders Orders - SONIDO WHEELER MD Procedure Category Date Status Time Apixaban (Eliquis) PHA 01/05/25 Logged 22:00 Communication Order ORDERS 01/05/25 Transmitted 16:42 Date of Service: Jan 05, 2025 Billing Provider: SONIDO WHEELER MD Common Visit Codes: [id number] INP/OBS CARE(MOD) SONIDO WHEELER MD Jan 05, 2025 17:00
[2025-01-05] MEDS ORDERED: APIXABAN 5 MG TAB PO SCH (22:00)
[2025-01-05] MEDS: APIXABAN 5 MG TAB PO SCH (23:28)
[2025-01-06 01:03] VITALS: BP 134/86; PULSE 82; RESP 18; TEMP 98.1; O2SAT 94
[2025-01-06 05:32] VITALS: BP 121/75; PULSE 75; RESP 18; TEMP 98.1; O2SAT 94
[2025-01-06 05:51] LABS: Hematocrit 39.9 % (41.0-53.0); Hemoglobin 13.8 g/dL (13.5-17.5); Mean Corpuscular Hemoglobin 30.2 pg (28.0-32.0); Mean Corpuscular Volume 87.3 fL (80.0-100.0); Nucleated Red Blood Cells % 0.1 %
[2025-01-06 08:57] VITALS: BP 136/87; PULSE 82; RESP 20; TEMP 98.1; O2SAT 95
--- NOTE | 2025-01-06 10:25 | DVHPN2 ---
Reviewed: Care Plan, H&P, Labs, Medications, Previous Orders, Radiology, Other (Consultation) Objective Vitals Vital Signs Date Time Temp Pulse Resp B/P (MAP) Pulse Ox O2 Delivery O2 Flow Rate FiO2 01/06/25 08:57 98.1 82 20 136/87 (103) 95 98.1 01/05/25 20:00 Room Air* 0 21 Intake/Output Intake and Output 01/06/25 07:00 Intake Total 1320 ml Output Total 877 ml Balance 443 ml Intake Oral 1320 ml Output Urine Total 875 ml Urine/Stool Mix 2 ml General Appearance: Alert, Oriented X3, Cooperative, mild distress HEENT: Atraumatic Lungs: Clear to auscultation, Normal air movement Cardiovascular: Regular rate, Normal S1, Normal S2, No murmurs Abdomen: Normal bowel sounds, Soft, No tenderness Extremities: Other (Left lower extremity swelling/redness/tenderness) Neuro: Normal speech, Cranial nerves 3-12 NL Psych/Mental Status: Mental status NL, Mood NL Medications Current Medications Medications Dose Ordered Sig/Letitia Route Start Time Stop Time Status Last Admin Dose Admin Sodium Chloride 1,000 ml @ 60 mls/hr [id number] IV 01/02/25 22:15 01/04/25 10:35 60 MLS/HR Morphine Sulfate 2 mg Q4HPRN PRN IV 01/02/25 22:15 Pantoprazole Sodium 40 mg DAILY IV 01/03/25 10:00 01/06/25 09:41 40 MG Nicotine 1 patch DAILY TD 01/04/25 10:00 01/06/25 09:42 1 PATCH Hydralazine HCl 10 mg Q6HP PRN IV 01/04/25 07:00 Apixaban 10 mg BID PO 01/05/25 22:00 01/12/25 21:59 01/06/25 09:40 10 MG Apixaban 5 mg BID PO 01/13/25 10:00 Laboratory Results Laboratory Tests 01/05/25 04:02 01/06/25 04:27 Coagulation Test 01/05/25 12:52 Prothrombin Time 11.7 sec (9.3-11.8) Prothrombin Time INR 1.12 (0.9-1.15) Activated Partial Thromboplast Time 114.5 SEC (24.5-34.5) *H Urinalysis Test 01/03/25 10:24 Urine Color Yellow (Yellow) Urine Clarity Clear (Clear) Urine pH 5.5 (5.0-9.0) Urine Specific [place] 1.044 (1.001-1.035) Urine Protein Normal (Negative) Urine Ketones Negative (Negative) Urine Blood Normal /uL (Negative) Urine Nitrite Negative (Negative) Urine Bilirubin Negative (Negative) Urine Urobilinogen Normal mg/dL (Negative) Urine Leukocyte Esterase Negative /uL (Negative) Urine Glucose Normal mg/dL (Normal) JORGE CAMPOS MD Jan 06, 2025 10:25
[2025-01-06] MEDS ORDERED: APIX5TAB PO (12:07)
--- NOTE | 2025-01-06 12:13 | DVHDS2 ---
Discharge Summary Date of Admission Jan 02, 2025 at 22:10 Date of Discharge: Jan 06, 2025 Admitting Diagnosis Acute hypoxic respiratory failure due to extensive bilateral pulmonary emboli Extensive bilateral pulmonary emboli with right heart strain Occlusive thrombus throughout the left superficial femoral vein, popiteal vein, as well as the trifurcations and posterior tibial veins Left lower extremity pain due to above Hypertensive heart disease with chronic diastolic heart failure; not in exacerbation Polysubstance use disorder including alcohol/methamphetamine/tobacco Elevated LFTs in the setting of alcohol use disorder and suspected right heart strain CORTEZ; vasomotor nephropathy Obesity Labs/Diagnostic Data: Laboratory Results Test 01/06/25 04:27 01/05/25 12:52 01/05/25 04:02 01/04/25 17:24 White Blood Count 6.5 10^3/uL (4.4-10.8) Red Blood Count 4.57 10^6/uL (4.5-5.90) Hemoglobin 13.8 g/dL (13.5-17.5) Hematocrit 39.9 % (41.0-53.0) Mean Corpuscular Volume 87.3 fL (80.0-100.0) Mean Corpuscular Hemoglobin 30.2 pg (28.0-32.0) Mean Corpuscular Hemoglobin Concent 34.6 g/dL (32.0-36.0) Red Cell Distribution Width 13.9 % (11.8-14.3) Platelet Count 310 10^3/uL (140-450) Mean Platelet Volume 7.1 fL (6.9-10.8) Neutrophils (%) (Auto) 63.8 % (37.0-80.0) Lymphocytes (%) (Auto) 22.3 % (10.0-50.0) Monocytes (%) (Auto) 8.5 % (0.0-12.0) Eosinophils (%) (Auto) 4.7 % (0.0-7.0) Basophils (%) (Auto) 0.7 % (0.0-2.0) Neutrophils # (Auto) 4.2 10 ^3/uL (1.6-8.6) Lymphocytes # (Auto) 1.4 10 ^3/uL (0.4-5.4) Monocytes # (Auto) 0.6 10 ^3/uL (0-1.3) Eosinophils # (Auto) 0.3 10 ^3/uL (0-0.8) Basophils # (Auto) 0 10 ^3/uL (0-0.2) Nucleated Red Blood Cells 0.1 % Prothrombin Time 11.7 sec (9.3-11.8) Prothrombin Time INR 1.12 (0.9-1.15) Activated Partial Thromboplast Time 114.5 SEC (24.5-34.5) Sodium Level 138 mmol/L (136-145) Potassium Level 3.8 mmol/L (3.5-5.1) Chloride Level 103 mmol/L (98-107) Carbon Dioxide Level 24 mmol/L (20-31) Anion Gap 11 (5-15) Blood Urea Nitrogen 10 mg/dL (9-23) Creatinine 1.13 mg/dL (0.700-1.30) Glomerular Filtration Rate Calc 80 mL/min (>90) BUN/Creatinine Ratio 8.8 (10.0-20.0) Serum Glucose 125 mg/dL (74-106) Calcium Level 8.9 mg/dL (8.7-10.4) Test 01/04/25 02:10 01/03/25 10:24 01/03/25 04:18 01/02/25 22:24 Total Bilirubin 0.4 mg/dL (0.2-1.0) Aspartate Amino Transferase (AST) 39 U/L (13-40) Alanine Aminotransferase (ALT) 59 U/L (7-40) Alkaline Phosphatase 133 U/L (46-116) Total Protein 6.6 g/dL (5.7-8.2) Albumin 3.8 g/dL (3.2-4.8) Urine Color Yellow (Yellow) Urine Clarity Clear (Clear) Urine pH 5.5 (5.0-9.0) Urine Specific [place] 1.044 (1.001-1.035) Urine Protein Normal (Negative) Urine Ketones Negative (Negative) Urine Blood Normal /uL (Negative) Urine Nitrite Negative (Negative) Urine Bilirubin Negative (Negative) Urine Urobilinogen Normal mg/dL (Negative) Urine Leukocyte Esterase Negative /uL (Negative) Urine Glucose Normal mg/dL (Normal) Urine Opiates Screen Neg (NEGATIVE) Urine Fentanyl Screen Neg (NEGATIVE) Urine Barbiturates Screen Neg (NEGATIVE) Urine Phencyclidine Screen Neg (NEGATIVE) Urine Amphetamines Screen Pos (NEGATIVE) Urine Benzodiazepines Screen Neg (NEGATIVE) Urine Cocaine Screen Neg (NEGATIVE) Urine Cannabinoids Screen Neg (NEGATIVE) Hepatitis A IgM Antibody Negative Hepatitis B Surface Antigen Negative (Negative) Hepatitis B Core IgM Antibody Negative (Negative) Hepatitis C Antibody Negative (Negative) Lactic Acid Level 1.2 mmol/L (0.4-2.0) Troponin I High Sensitivity 50 ng/L (</=54) Test 01/02/25 19:50 01/02/25 18:55 Vitamin B12 Level 372 pg/mL (211-911) D-Dimer, Quantitative 3.54 mg/L FEU (0.0-0.49) Hemoglobin A1c 5.7 % A1C (<5.7) Phosphorus Level 3.3 mg/dL (2.4-5.1) Magnesium Level 2.1 mg/dL (1.6-2.6) B-Type Natriuretic Peptide 181.46 pg/mL (0-100) Triglycerides Level 189 mg/dL (< 150) Cholesterol Level 157 mg/dL (< 200) LDL Cholesterol 96 mg/dL (< 100) HDL Cholesterol 47 mg/dL (40-59) Vitamin D 25-Hydroxy 40.0 ng/mL (30.0-100) Thyroid Stimulating Hormone (TSH) 1.71 uIU/mL (0.55-4.78) Other Laboratory Tests 01/06/25 04:27 01/05/25 04:02 Brief Hx & Hospital Course: This is a 49 years old male come to emergency department because severe dyspnea on exertion. The patient said he had this for five days. He also had lower extremity swelling and pain. Patient has ultrasound bilateral lower extremity showed left lower extremity acute DVT. The patient subsequently had CTA of the chest done also and it showed: Extensive bilateral PE. No definite right heart strain. The patient was admitted. The patient was put on heparin drip. Subsequently this was switched to Eliquis. The patient ambulate. Shortness for breath improved. Pain improved. I am going to discharge the patient home. Advised the patient to continuing Eliquis from minimum six months and if he had another bowel of DVT in PE he will need to be on it for life. Activity as tolerated. Diet per home diet. Follow up with primary care physician 1-2 weeks. Physical exam: HEENT: Normocephalic atraumatic pupils equal react to light and accommodation. Extraocular muscles intact, conjunctiva pink, oropharynx moist, no thrush, no exudate. Lymphatic: No lymphadenopathy Cardiovascular exam: S1, S2 was heard. No murmurs, rubs, gallops Lung: Clear on auscultation bilaterally, no wheeze, rale, rhonchi. GI: Abdominal soft, nondistended, nontenderness, positive bowel sounds. Extremity: No crepitus, cyanosis, edema. Pedal pulses present bilateral. Full range of motion. Skin: Normal turgor, no rash. Psych: Alert, oriented x3. Neurology: No focal deficits, cranial nerve II to XII grossly intact. This medical document was created using an electronic medical record system with [employer] direct computerized dictation system. Although this document has been carefully reviewed, there may still be some phonetic and typographical errors. These areas are purely typographical due to imperfections of the software programs, and do not reflect any compromise in the patient's medical care. Condition at Discharge: Stable Final Diagnosis/Problems List Acute hypoxic respiratory failure due to extensive bilateral pulmonary emboli Extensive bilateral pulmonary emboli with right heart strain Occlusive thrombus throughout the left superficial femoral vein, popiteal vein, as well as the trifurcations and posterior tibial veins Left lower extremity pain due to above Hypertensive heart disease with chronic diastolic heart failure; not in exacerbation Polysubstance use disorder including alcohol/methamphetamine/tobacco Elevated LFTs in the setting of alcohol use disorder and suspected right heart strain CORTEZ; vasomotor nephropathy Obesity Discharge Disposition: Home Discharge Instruct/Medications Diet: Regular Activity: No Restrictions, As Tolerated Follow Up/Referral: pcp 1-2 weeks Medications: see med list Scheduled Apixaban Base (Eliquis), 5 MG PO BID Discontinued Medications Sulfamethoxazole W/Trimethopri (Septra), (Reported) Discharge Statement: "Patient was advised to return to the ER or call 911 if any headaches, dizziness, shortness of breath, chest pain, abdominal pain, bleeding, fevers, or worsening of medical condition. Patient was counseled about treatment plan, medications, possible side effects, patientverbalized understanding. All questions were answered to the best of my ability. This discharge took greater then 30 minutes in planning, reviewing documentation, counseling the patient, and discussing with other team members." ASSESSMENT ASSESSMENT Assessment Pulmonary Embolism Date of Service: Jan 06, 2025 Billing Provider: JORGE CAMPOS MD Common Visit Codes: [id number] DISCH DAY >30min JORGE CAMPOS MD Jan 06, 2025 12:13
[2025-01-06 13:00] VITALS: BP 138/91; PULSE 77; RESP 20; TEMP 98; O2SAT 96
[2025-01-07 19:06] LABS: Proten S Antigen Total 135 % (60-150)
[2025-01-13] MEDS ORDERED: APIXABAN 5 MG TAB PO SCH (10:00)
== END 2025-01-06 14:14 | disposition home or self-care (01) | DRG 134 ==
LOC: ER 18:25 → OVERFLOW 22:10 → TELE-WESTW 01-03 21:58
PROVIDERS: ADMIT Internal Medicine; ATTEND Internal Medicine
PROC: 02CR3ZZ Extirpation of Matter from Left Pulmonary Artery, Percutaneous Approach (ICD-10-PCS; principal; 2025-01-04)
PROC: 02CQ3ZZ Extirpation of Matter from Right Pulmonary Artery, Percutaneous Approach (ICD-10-PCS; 2025-01-04)
PROC: B31TYZZ Fluoroscopy of Left Pulmonary Artery using Other Contrast (ICD-10-PCS; 2025-01-04)
PROC: B31SYZZ Fluoroscopy of Right Pulmonary Artery using Other Contrast (ICD-10-PCS; 2025-01-04)
PROC: B51GYZZ Fluoroscopy of Left Pelvic (Iliac) Veins using Other Contrast (ICD-10-PCS; 2025-01-04)
DX: I26.99 Other pulmonary embolism without acute cor pulmonale (principal); N17.0 Acute kidney failure with tubular necrosis; J96.01 Acute respiratory failure with hypoxia; I82.412 Acute embolism and thrombosis of left femoral vein; I82.442 Acute embolism and thrombosis of left tibial vein; F10.10 Alcohol abuse, uncomplicated; I50.32 Chronic diastolic (congestive) heart failure; I11.0 Hypertensive heart disease with heart failure; Z68.32 Body mass index [BMI] 32.0-32.9, adult; F19.10 Other psychoactive substance abuse, uncomplicated; E66.9 Obesity, unspecified; I82.432 Acute embolism and thrombosis of left popliteal vein; F17.210 Nicotine dependence, cigarettes, uncomplicated; Z88.1 Allergy status to other antibiotic agents
CPT/HCPCS: 36415; 37184; 71045; 71275; 76775; 80048; 80053; 80061; 80074; 80307; 81003; 81241; 82306; 82607; 83036; 83605; 83735; 83880; 84100; 84443; 84484; 85025; 85301; 85302; 85305; 85306; 85379; 85610; 85730; 86850; 86900; 86901; 93005; 93306; 93971; 94640; 96365; 96375; 99152; 99291; C1769; C1894; G0378; J2250; J2470; Q9967

== ENCOUNTER 2025-01-16 14:47 | Emergency (ER) | payer MEDICAID ==
[~2025-01-16] VITALS: Ht 182.9 cm; Wt 115.0 kg
[~2025-01-16 14:47] MED LIST changes: +APIX5TAB PO; -[UNRECOGNIZED DRUG - CODE]
[2025-01-16 16:41] VITALS: BP 120/80; PULSE 88; RESP 17; TEMP 98.7; O2SAT 95
[2025-01-16 17:10] LABS: Hemoglobin 15.0 g/dL (13.5-17.5); Nucleated Red Blood Cells % 0.1 %
[2025-01-16 17:12] LABS: Hematocrit 43.0 % (41.0-53.0); Mean Corpuscular Hemoglobin 30.7 pg (28.0-32.0); Mean Corpuscular Volume 87.9 fL (80.0-100.0)
[2025-01-16 17:14] LABS: Potassium 4.2 mmol/L (3.5-5.1); Sodium 145 mmol/L (136-145)
[2025-01-16 17:15] LABS: Anion Gap 9 (5-15); Calcium 9.4 mg/dL (8.7-10.4); Carbon Dioxide 29 mmol/L (20-31); Chloride 107 mmol/L (98-107)
[2025-01-16 17:20] LABS: BUN/Creatinine Ratio 13.0 (10.0-20.0); Blood Urea Nitrogen 15 mg/dL (9-23); Glucose 83 mg/dL (74-106)
[2025-01-16 17:24] LABS: INR 1.03 (0.9-1.15); Prothrombin Time 10.9 sec (9.3-11.8)
--- NOTE | 2025-01-16 17:49 | DVH ---
Left lower extremity venous duplex Clinical History: DVT rule out Comparison: US LT LOWER DVT on DOS: 01/02/25 Technique: Duplex Doppler evaluation of the deep venous system of the left lower extremity from the common femor al vein to the popliteal vein including color Doppler and spectral/pulsed waveform analysis was perfo rmed. Findings: The common femoral vein demonstrates appropriate compressibility and waveform variability. There is compressibility/patency of the great saphenous vein at the proximal thigh. DVT is seen throughout the superficial femoral vein and popliteal vein. Impression: 1. DVT is seen throughout the left superficial femoral vein and popliteal vein.
[2025-01-16] MEDS ORDERED: IBUP-1455 PO (19:51)
[2025-01-16] MEDS ORDERED: HYDR-4902 PO (19:51)
--- NOTE | 2025-01-16 19:52 | ED.PDOC ---
Musculoskeletal HPI Comments This patient is a morbidly obese 49-year-old male who arrives the ED today for evaluation of continued left leg pain concerns for the past few weeks. Patient was seen this facility several weeks back and diagnosed with a pulmonary emboli. Patient required a thrombectomy procedure due to that emboli. Patient was discharged and the providers noted the patient had a DVT of the left lower extremity. Patient states he is on thinners as scheduled and has a follow up appointment on the . Patient is a today's stating that the leg has been in pain and it is swollen. Vital signs were stable. Chief Complaint: Extremity Swelling Time Seen by MD: 16:40 Primary Care Provider: JULIO Reviewed Notes: Nurses Notes Allergies: Coded Allergies: Cefepime (Verified Allergy, Unknown, 01/02/25) Home Meds Active Scripts Apixaban Base (ELIQUIS) 5 Mg Tab, 5 MG PO BID, #60 TAB 9 Refills Prov:JORGE CAMPOS MD 01/06/25 Information Source: Patient Mode of Arrival: Ambulatory Location: Left Extremity Location: Leg Timing: Weeks Prehospital treatment: Treatment Severity: Moderate Able to Move Extremity: Yes Bear Weight: Fully Pain: Moderate Hand Dominance: Right Mechanism: Other (DVT of the left lower extremity) Circumstances: Other (DVT of the left lower extremity) Symptoms: Swelling, Pain DVT Risk Factors: DVT Past Medical History PAST MEDICAL HISTORY: Denies Surgical History: Denies all surgeries Family History Family History: Reviewed,noncontributory to illness, Unknown Social History Smoker: Cigarettes Alcohol: Denies ETOH Use Drugs: Denies Drug Use Lives In: Home Constitutional: denies: chills, diaphoresis, fatigue, fever, malaise, sweats, weakness, others EENTM: denies: blurred vision, double vision, ear bleeding, ear discharge, ear drainage, ear pain, ear ringing, eye pain, eye redness, hearing loss, mouth pain, mouth swelling, nasal discharge, nose bleeding, nose congestion, nose pain, photophobia, tearing, throat pain, throat swelling, voice changes, others Respiratory: denies: cough, hemoptysis, orthopnea, SOB at rest, shortness of breath, SOB with excertion, stridor, wheezing, others Cardiovascular: denies: chest pain, dizzy spells, diaphoresis, Dyspnea on exertion, edema, irregular heart beat, left arm pain, lightheadedness, palpitations, PND, syncope, others Gastrointestinal: denies: abdomen distended, abdominal pain, blood streaked bowels, constipated, diarrhea, dysphagia, difficulty swallowing, hematemesis, melena, nausea, poor appetite, poor fluid intake, rectal bleeding, rectal pain, vomiting, others Genitourinary: denies: burning, dysuria, flank pain, frequency, hematuria, inco ntinence, penile discharge, penile sore, pain, testicle pain, testicle swelling, urgency, others Neurological: denies: dizziness, fainting, headache, left sided numbness, left sided weakness, numbness, paresthesia, pre-existing deficit, right sided numbness, right sided weakness, seizure, speech problems, tingling, tremors, weakness, others Musculoskeletal: reports: others (Left lower extremity pain and swelling); denies: back pain, gout, joint pain, joint swelling, muscle pain, muscle stiffness, neck pain Integumetry: denies: bruises, change in color, change in hair/nails, dryness, laceration, lesions, lumps, rash, wounds, others Allergic/Immunocompromised: denies: Difficulty Healing, Frequent Infections, Hives, Itching, others Hematologic/Lymphatic: denies: anemia, blood clots, easy bleeding, easy bruising, swollen glands, others Endocrine: denies: excessive hunger, excessive sweating, excessive thirst, excessive urination, flushing, intolerance to cold, intolerance to heat, unexpla ined weight gain, unexplained weight loss, others Psychiatric: denies: anxiety, bipolar disorder, depression, hopeless, panic disorder, schizophrenia, sleepless, suicidal, others Physical Exam General Appearance: Moderate Distress ([id number] distress due to left lower extremity pain), Obese HEENT: Normal ENT Inspection, Pharynx Normal, TMs Normal Neck: Full Range of Motion, Non-Tender, Normal, Normal Inspection Respiratory: Chest Non-Tender, Lungs Clear, No Accessory Muscle Use, No Respiratory Distress, Normal Breath Sounds Cardiovascular: No Edema, No JVD, No Murmur, No Gallop, Normal Peripheral Pulses, Regular Rate/Rhythm Breast Exam: Deferred Gastrointestinal: No Organomegaly, Non Tender, No Pulsatile Mass, Normal Bowel Sounds, Soft Genitalia: Deferred Pelvic: Deferred Rectal: Deferred Extremities: Other (Patient is a left lower extremity reveals mild pitting edema. Tissue is taut without erythema.) Neurologic: Alert Cerebellar Function: NOT DONE Reflexes: NOT DONE Skin: Dry, Normal Color, Warm Lymphatic: No Adenopathy Was a procedure done? Was a procedure done?: No Differential Diagnosis EXT Differential Diagnosis: Deep Vein Thrombosis, Other (Peripheral edema) X-Ray, Labs, Meds, VS Vital Signs Date Time Temp Pulse Resp B/P (MAP) Pulse Ox O2 Delivery O2 Flow Rate FiO2 01/16/25 16:41 98.7 88 18 120/80 (93) 95 98.7 01/16/25 16:41 88 17 95 Room Air 01/16/25 14:50 97.1 93 20 141/88 94 97.1 Lab Test 01/16/25 17:43 01/16/25 16:54 01/16/25 16:53 Range/Units Troponin I High Sensitivity 6 6 </=54 ng/L Lactic Acid Level 0.9 0.4-2.0 mmol/L White Blood Count 6.9 4.4-10.8 10^3/uL Red Blood Count 4.89 4.5-5.90 10^6/uL Hemoglobin 15.0 13.5-17.5 g/dL Hematocrit 43.0 41.0-53.0 % Mean Corpuscular Volume 87.9 80.0-100.0 fL Mean Corpuscular Hemoglobin 30.7 28.0-32.0 pg Mean Corpuscular Hemoglobin Concent 35.0 32.0-36.0 g/dL Red Cell Distribution Width 14.2 11.8-14.3 % Platelet Count 445 140-450 10^3/uL Mean Platelet Volume 6.7 L 6.9-10.8 fL Neutrophils (%) (Auto) 64.9 37.0-80.0 % Lymphocytes (%) (Auto) 24.3 10.0-50.0 % Monocytes (%) (Auto) 6.9 0.0-12.0 % Eosinophils (%) (Auto) 3.0 0.0-7.0 % Basophils (%) (Auto) 0.9 0.0-2.0 % Neutrophils # (Auto) 4.5 1.6-8.6 10 ^3/uL Lymphocytes # (Auto) 1.7 0.4-5.4 10 ^3/uL Monocytes # (Auto) 0.5 0-1.3 10 ^3/uL Eosinophils # (Auto) 0.2 0-0.8 10 ^3/uL Basophils # (Auto) 0.1 0-0.2 10 ^3/uL Nucleated Red Blood Cells 0.1 % Prothrombin Time 10.9 9.3-11.8 sec Prothrombin Time INR 1.03 0.9-1.15 D-Dimer, Quantitative 2.71 H 0.0-0.49 mg/L FEU Sodium Level 145 136-145 mmol/L Potassium Level 4.2 3.5-5.1 mmol/L Chloride Level 107 98-107 mmol/L Carbon Dioxide Level 29 20-31 mmol/L Anion Gap 9 5-15 Blood Urea Nitrogen 15 9-23 mg/dL Creatinine 1.15 0.700-1.30 mg/dL Glomerular Filtration Rate Calc 79 >90 mL/min BUN/Creatinine Ratio 13.0 10.0-20.0 Serum Glucose 83 74-106 mg/dL Calcium Level 9.4 8.7-10.4 mg/dL B-Type Natriuretic Peptide 11.95 0-100 pg/mL X-Ray, Labs, Meds, VS Comment All studies performed the ED were evaluated by me personally. Serum studies were unremarkable for any systemic concerns other than an elevated D-dimer. Ultrasound of the left lower extremity confirmed a DVT throughout the left superficial femoral vein and popliteal vein. Patient has a scheduled follow up in four days for re-evaluation. Advised patient to continue with blood thinners as prescribed and pain medication as needed. Time of 1ST Reevaluation: 19:49 Reevaluation 1ST: Improved Consultation: PCP Patient Education/Counseling: Diagnosis, Treatment Family Education/Counseling: Diagnosis, Treatment Sepsis Sepsis Reasesment Focused Exam Orders: Laboratory Tests 01/16/25 16:54: Lactic Acid Level 0.9 Recent Procedure: No On Antibiotic Therapy: No Respiratory Rate >20: No Heart Rate >90: No Temp<36 C (96.8 F) or >38.3 C: No SBP <90 or MAP <65 mmHG: No New Acute Mental Status Change: No Is the patient on CPAP, BIPAP,: No IV fluid given: No Departure 1 Departure Time of Disposition: 19:50 Impression: Primary Impression: Deep vein thrombosis (DVT) of left lower extremity Disposition: HOME / SELF CARE / HOMELESS Condition: Stable Additional Instructions: Advised patient continue on his blood thinners as prescribed and pain medication as needed. Patient should maintain his follow up appointment for re-evaluation. e-Prescriptions Hydrocodone-Acetaminophen (Hydrocodone Bitartrate/AC 5-325 mg) 1 Tab Tab 1 TAB PO Q6HP PRN, #12 TAB Prov: RADU COUCH PAC 01/16/25 Ibuprofen Micronized (Ibuprofen) 800 Mg Tab 800 MG PO Q8HP PRN, #30 TAB Prov: RADU COUCH PAC 01/16/25 Discharged With: Self, Friend Critical Care Note Critical Care Time?: No Stability Stability form required: No Heart Score Heart Score: Heart Score Response (Comments) Value History N/A 0 EKG N/A 0 Age N/A 0 Risk Factors N/A 0 Troponin N/A 0 Total 0 RADU COUCH PAC Jan 16, 2025 19:51
== END 2025-01-16 21:48 | disposition home or self-care (01) ==
LOC: ER 14:47
DX: I82.412 Acute embolism and thrombosis of left femoral vein (principal); I82.432 Acute embolism and thrombosis of left popliteal vein; F17.210 Nicotine dependence, cigarettes, uncomplicated; Z88.1 Allergy status to other antibiotic agents; Z79.899 Other long term (current) drug therapy
CPT/HCPCS: 36415; 80048; 83605; 83880; 84484; 85025; 85379; 85610; 93971